=== PATIENT | male | born 1960 | race Caucasian/White ===

== ENCOUNTER 2017-09-22 06:30 | Day surgery (SDC) | payer MEDICAID ==
[~2017-09-22] VITALS: Ht 165.1 cm; Wt 76.2 kg
[2017-09-22] MEDS ORDERED: SIMETHICONE 40 MG/0.6 ML ML ONE (07:05)
[2017-09-22] MEDS ORDERED: MEPERIDINE HCL/PF 100 MG/ML AMP ONE (07:07)
[2017-09-22] MEDS: MIDAZOLAM HCL 5 MG/5 ML VIAL ONE ×4 (09:15→09:23)
[2017-09-22 10:09] VITALS: BP_SYST 142
== END 2017-09-22 10:25 | disposition home or self-care (01) ==
LOC: SDS 06:30 → SMU 06:30 → SDS 10:25
PROVIDERS: ATTEND Internal Medicine Gastroenterology
DX: Z12.11 Encounter for screening for malignant neoplasm of colon (principal); K52.9 Noninfective gastroenteritis and colitis, unspecified; K64.8 Other hemorrhoids; Z68.30 Body mass index [BMI] 30.0-30.9, adult; J45.909 Unspecified asthma, uncomplicated; E07.9 Disorder of thyroid, unspecified; Z79.899 Other long term (current) drug therapy
CPT/HCPCS: 45380; 88305; J2175; J2250